=== PATIENT | male | born 1995 | race Caucasian/White ===

== ENCOUNTER → 2023-12-15 09:17 | Outpatient (BNVA) | payer BC, SELFPAY | PROVIDERS: Family Provider Family Medicine; PCP Family Medicine; Visit Provider Family Medicine | DX: R03.0 Elevated blood-pressure reading, without diagnosis of hypertension (principal); Z51.81 Encounter for therapeutic drug level monitoring; Z13.1 Encounter for screening for diabetes mellitus | CPT/HCPCS: 80053; 83036; 84550; 85025 ==